=== PATIENT | female | born 1955 | race Caucasian/White ===

== ENCOUNTER 2020-01-16 12:58 | Emergency (ER) | payer OTHER ==
[~2020-01-16] VITALS: Ht 160 cm; Wt 77.1 kg
[~2020-01-16 12:58] MED LIST: ADVIL200 MG PO; BENADRYL25 MG PO; FLEXERIL PO; HYDROCODON-ACE1 EAC7 PO; NEXIUM20 M1; NORCO 5-325 TA1 EACH PO; VYTORIN 10-401 EACH; ZOFRAN ODT4 MG PO; ZPAK PO
[2020-01-16] MEDS ORDERED: HYDROCORTISONE3011 TOP (13:37)
[2020-01-16] MEDS ORDERED: MEDROLDOSEPACK PO (13:37)
[2020-01-16 14:10] VITALS: BP 122/71
== END 2020-01-16 14:11 | disposition home or self-care (01) ==
LOC: M.ERS 12:58
DX: L25.9 Unspecified contact dermatitis, unspecified cause (principal); Z88.0 Allergy status to penicillin; Z79.899 Other long term (current) drug therapy

== ENCOUNTER 2021-02-12 09:29 | Emergency (ER) | payer OTHER ==
[~2021-02-12] VITALS: Ht 160 cm; Wt 79.4 kg
[~2021-02-12 09:29] MED LIST changes: +HYDROCORTISONE3011 TOP; +MEDROLDOSEPACK PO
[2021-02-12] MEDS ORDERED: CHOLESTEROL MED (09:38)
[2021-02-12 10:51] LABS: ABSOLUTE BASOPHILS 0.1 thou/uL (0.0-0.2); ABSOLUTE EOSINOPHILS 0.4 thou/uL (0.0-0.7); ABSOLUTE LYMPHOCYTES 1.4 thou/uL (0.8-5.3); ABSOLUTE MONOCYTES 0.5 thou/uL (0.0-1.2); ABSOLUTE NEUTROPHILS 4.3 thou/uL (1.6-8.1); BASOPHILS 0.9 %; EOSINOPHILS 6.6 %; HEMATOCRIT 40.5 % (37.0-47.0); LYMPHOCYTES 21.1 %; MCH 30.3 pg (26.0-34.0); MCHC 34.6 g/dL (28.0-37.0); MCV 87.7 fL (80.0-100.0); MONOCYTES 7.8 %; MPV 8.7 fl. (7.2-11.1); NUCLEATED RBCS 0 /100WBC; PLATELET COUNT* 250 thou/uL (150-400); POLYS 63.6 %; RBC 4.62 mil/uL (4.20-5.00); RDW-CV 13.7 % (10.5-14.5); WBC 6.8 thou/uL (4.0-11.0)
[2021-02-12 11:22] LABS: CALCIUM 8.8 mg/dL (8.5-10.1); CREATININE 0.6 mg/dL (0.6-1.3); POTASSIUM 4.1 mmol/L (3.5-5.1)
[2021-02-12 11:26] LABS: ALBUMIN 4.2 g/dL (3.4-5.0); TOTAL BILIRUBIN 0.4 mg/dL (<0.1-1.0); TOTAL PROTEIN 7.7 g/dL (6.4-8.2)
[2021-02-12 12:09] VITALS: BP 141/70
== END 2021-02-12 12:10 | disposition home or self-care (01) ==
LOC: M.ERS 09:29
PROVIDERS: Emergency Medicine
DX: K62.5 Hemorrhage of anus and rectum (principal); E78.5 Hyperlipidemia, unspecified; K21.9 Gastro-esophageal reflux disease without esophagitis; Z90.710 Acquired absence of both cervix and uterus; Z88.0 Allergy status to penicillin